=== PATIENT | male | born 1970 | race Caucasian/White ===

== ENCOUNTER 2017-04-12 03:34 | Inpatient (IN) | payer MEDICARE, MEDICAID ==
[~2017-04-12] VITALS: Ht 162.6 cm; Wt 127.7 kg
[2017-04-12] MEDS ORDERED: DILTIAZEM HCL 5 MG/ML 5 ML VIAL IVP ONE (03:45)
[2017-04-12 03:57] LABS: GLUCOSE,POINT OF CARE 131 MG/DL (70-110)
[2017-04-12 04:03] LABS: BASOPHILS % (AUTO) 0.3 % (0.0-2.0); EOSINOPHILS % (AUTO) 2.1 % (1.0-6.0); HEMATOCRIT 37.2 % (41-53); HEMOGLOBIN 11.7 g/dL (13.5-17.5); LYMPHOCYTES # (AUTO) 1.4 K/uL (1.0-4.8); LYMPHOCYTES % (AUTO) 18.2 % (22.0-44.0); MEAN CORPUSCULAR HEMOGLOBIN 26.6 pg (26.0-34.0); MEAN CORPUSCULAR HGB CONC 31.4 G/dL (31.0-37.0); MEAN CORPUSCULAR VOLUME 85 fL (80-100); MONOCYTES # (AUTO) 0.5 K/uL (0.1-1.0); NEUTROPHILS # (AUTO) 5.8 K/uL (1.8-7.7); NEUTROPHILS % (AUTO) 73.4 % (40.0-70.0); PLATELET COUNT (AUTO) 153 K/uL (150-450); RED CELL DISTRIBUTION WIDTH 15.3 % (11.5-14.5); WHITE BLOOD COUNT (AUTO) 7.9 K/uL (4.5-11.0)
[2017-04-12 04:12] LABS: ANION GAP 8 mmol/L (8-16); CALCIUM, TOTAL 8.6 mg/dL (8.8-10.5); CARBON DIOXIDE 28 mmol/L (22-29); CHLORIDE 104 mmol/L (98-107); CREATININE 1.48 mg/dL (0.60-1.30); GLOMERULAR FILTR. RATE CALC 49 mL/min (>60); POTASSIUM 3.8 mmol/L (3.5-5.1); SODIUM SERUM 140 mmol/L (136-145); UREA NITROGEN, BLOOD 19 mg/dL (7-18)
[2017-04-12 04:27] LABS: B-TYPE NATRIURETIC PEPTIDE 380 pg/mL (0-100)
[2017-04-12 04:37] LABS: ALANINE AMINOTRANSFERASE 27 U/L (12-78); ALBUMIN 3.3 g/dL (3.4-5.0); ASPARTATE AMINOTRANSFERASE 21 U/L (15-37); BILIRUBIN,TOTAL 0.6 mg/dL (0.1-1.0); CREATINE KINASE MB 2.1 ng/mL (0-5); CREATINE KINASE, TOTAL 223 U/L (39-308); TOTAL PROTEIN, SERUM 7.9 g/dL (6.4-8.2)
[2017-04-12] MEDS ORDERED: NITROGLYCERIN 2% (1 GM=INCH) PACKET TP ONE (05:00)
[2017-04-12] MEDS ORDERED: FUROSEMIDE 40 MG/4 ML VIAL IVP ONE (05:00)
[2017-04-12 06:15] LABS: APPEARANCE,URINE CLEAR (CLEAR); GLUCOSE, URINE (UA) NEGATIVE (NEGATIVE); KETONES,URINE NEGATIVE (NEGATIVE); LEUKOCYTE ESTERASE ,URINE NEGATIVE (NEGATIVE); OCCULT BLOOD,URINE NEGATIVE (NEGATIVE); PROTEIN,URINE POS 1+ (NEGATIVE)
[2017-04-12 06:16] LABS: ADD UA MICROSCOPIC NO
[2017-04-12] MEDS ORDERED: HydrALAZINE HCL 20 MG/ML VIAL IVP ONE (08:00)
[2017-04-12] MEDS: ENOXAPARIN SODIUM 60 MG/0.6 ML PF SYRINGE SQ SCH ×2 (10:35→22:00)
[2017-04-12] MEDS: METOPROLOL TARTRATE 50 MG TABLET PO SCH ×2 (10:35→20:10)
[2017-04-12 11:09] VITALS: BP 170/95
[2017-04-12] MEDS ORDERED: DEXTROSE 50%-WATER 25 GM/50 ML SYRINGE IVP PRN (11:15)
[2017-04-12] MEDS ORDERED: ONDANSETRON HCL 4 MG/2 ML VIAL IVP PRN (11:15)
[2017-04-12] MEDS ORDERED: ACETAMINOPHEN 650 MG/20.3 ML SOLUTION UDCUP PO PRN (11:15)
[2017-04-12] MEDS ORDERED: ACETAMINOPHEN 325 MG TABLET PO PRN (11:30)
[2017-04-12 11:48] LABS: ALBUMIN 3.3 g/dL (3.4-5.0); BILIRUBIN,TOTAL 0.7 mg/dL (0.1-1.0); CALCIUM, TOTAL 8.3 mg/dL (8.8-10.5); CREATININE 1.31 mg/dL (0.60-1.30); POTASSIUM 3.6 mmol/L (3.5-5.1)
[2017-04-12] MEDS: PANTOPRAZOLE SODIUM 40 MG DR TABLET PO SCH (11:58)
[2017-04-12] MEDS: POTASSIUM CHLORIDE 40 MEQ in SODIUM CHLORIDE 0.9% 1,000 ML IV SCH (11:58)
[2017-04-12 12:02] LABS: GLUCOSE,POINT OF CARE 119 MG/DL (70-110)
[2017-04-12 15:31] VITALS: BP 141/100
[2017-04-12 19:18] VITALS: BP 139/98
[2017-04-12 23:19] VITALS: BP 141/96
[2017-04-12] MEDS: HYDROCODONE/ACETAMINOPHEN 5-325 MG TABLET PO PRN (23:35)
[2017-04-12 23:37] VITALS: BP 130/94
[2017-04-13] VITALS (10 sets, daily range): BP systolic 131–165; BP diastolic 83–121
[2017-04-13] MEDS: POTASSIUM CHLORIDE 40 MEQ in SODIUM CHLORIDE 0.9% 1,000 ML IV SCH ×2 (01:57→16:44)
[2017-04-13] MEDS: ENOXAPARIN SODIUM 60 MG/0.6 ML PF SYRINGE SQ SCH ×2 (09:04→19:42)
[2017-04-13] MEDS ORDERED: SESTAMIBI TC99M/UD ISOTOPE 1 EA INJ INJ ONE ×2 (10:05→12:05)
[2017-04-13] MEDS ORDERED: REGADENOSON 0.4 MG/5 ML PF SYRINGE IVP ONE ×2 (10:06→17:24)
[2017-04-13] MEDS ORDERED: AMINOPHYLLINE 25 MG/ML 10 ML VIAL IVP ONE ×2 (10:09→10:14)
[2017-04-13] MEDS ORDERED: CLOPIDOGREL BISULFATE 300 MG TABLET PO ONE (10:15)
[2017-04-13] MEDS: ASPIRIN 81 MG CHEWABLE TABLET PO SCH (10:43)
[2017-04-13] MEDS: PANTOPRAZOLE SODIUM 40 MG DR TABLET PO SCH (10:43)
[2017-04-13] MEDS: METOPROLOL TARTRATE 50 MG TABLET PO SCH ×2 (10:43→19:42)
[2017-04-13] MEDS: INSULIN ASPART 100 UNITS/ML SQ PRN ×3 (12:56→19:49)
[2017-04-13 13:27] LABS: GLUCOSE COMMENT 1 Received Meds; GLUCOSE,POINT OF CARE 203 MG/DL (70-110)
[2017-04-13] MEDS ORDERED: AMINOPHYLLINE 25 MG/ML 10 ML VIAL IV ONE (17:24)
[2017-04-13] MEDS ORDERED: HydrALAZINE HCL 10 MG TABLET PO PRN (19:30)
[2017-04-13] MEDS: HYDROCODONE/ACETAMINOPHEN 5-325 MG TABLET PO PRN (21:44)
[2017-04-13] MEDS: CALCIUM CARBONATE 500 MG CHEWABLE TABLET CHEW PRN (23:08)
[2017-04-14 05:17] VITALS: BP 154/66
[2017-04-14 07:21] VITALS: BP 123/90
[2017-04-14 08:27] LABS: GLUCOSE COMMENT 1 Received Meds; GLUCOSE,POINT OF CARE 154 MG/DL (70-110)
[2017-04-14 08:36] LABS: GLUCOSE COMMENT 1 Received Meds; GLUCOSE,POINT OF CARE 195 MG/DL (70-110)
[2017-04-14] MEDS: ASPIRIN 81 MG CHEWABLE TABLET PO SCH (08:37)
[2017-04-14] MEDS: PANTOPRAZOLE SODIUM 40 MG DR TABLET PO SCH (08:37)
[2017-04-14] MEDS: METOPROLOL TARTRATE 50 MG TABLET PO SCH (08:37)
[2017-04-14] MEDS: ENOXAPARIN SODIUM 60 MG/0.6 ML PF SYRINGE SQ SCH (08:38)
[2017-04-14] MEDS: POTASSIUM CHLORIDE 40 MEQ in SODIUM CHLORIDE 0.9% 1,000 ML IV SCH (08:42)
[2017-04-14] MEDS ORDERED: CLOPIDOGREL BISULFATE 75 MG TABLET PO SCH (09:00)
[2017-04-14 11:24] VITALS: BP 131/73
[2017-04-14] MEDS: INSULIN ASPART 100 UNITS/ML SQ PRN (11:50)
[2017-04-14] MEDS: HYDROCODONE/ACETAMINOPHEN 5-325 MG TABLET PO PRN (13:09)
[2017-04-14 15:19] VITALS: BP 152/93
[2017-04-14] MEDS ORDERED: ASPI-1093 PO (16:44)
[2017-04-14] MEDS ORDERED: CLOP75 PO (16:44)
[2017-04-14] MEDS ORDERED: METO50 PO (16:45)
[2017-04-14] MEDS ORDERED: PANT40TA25 PO (16:46)
[2017-04-14] MEDS ORDERED: GLYB2.5 PO (16:47)
[2017-04-14] MEDS ORDERED: HYDR10TA31 PO (16:47)
[2017-04-14] MEDS ORDERED: CACARB500 PO (16:48)
[2017-04-14] MEDS: CALCIUM CARBONATE 500 MG CHEWABLE TABLET CHEW PRN (17:11)
[2017-04-15 00:12] LABS: GLUCOSE,POINT OF CARE 122 MG/DL (70-110)
[2017-04-15 00:16] LABS: GLUCOSE,POINT OF CARE 119 MG/DL (70-110)
[2017-04-16 13:37] LABS: GLUCOSE,POINT OF CARE 110 MG/DL (70-110)
[2017-04-16 13:37] LABS: GLUCOSE,POINT OF CARE 111 MG/DL (70-110)
== END 2017-04-14 17:25 | disposition home or self-care (01) | DRG 682 ==
LOC: EMS 03:36 → EDBD 03:36 → AHU 10:01 → 5N 14:37 → 5S 04-14 10:24
PROVIDERS: ADMIT Internal Medicine; ATTEND Internal Medicine
DX: N17.9 Acute kidney failure, unspecified (principal); I50.23 Acute on chronic systolic (congestive) heart failure; Z68.42 Body mass index [BMI] 45.0-49.9, adult; I24.8 Other forms of acute ischemic heart disease; I48.91 Unspecified atrial fibrillation; I11.0 Hypertensive heart disease with heart failure; E86.0 Dehydration; I25.10 Atherosclerotic heart disease of native coronary artery without angina pectoris; F17.210 Nicotine dependence, cigarettes, uncomplicated; E66.9 Obesity, unspecified; E11.51 Type 2 diabetes mellitus with diabetic peripheral angiopathy without gangrene; Z91.14 Patient's other noncompliance with medication regimen; Z95.5 Presence of coronary angioplasty implant and graft; Z59.0 Homelessness; Z86.73 Personal history of transient ischemic attack (TIA), and cerebral infarction without residual deficits
CPT/HCPCS: 78452; 82962; 93005; 93017; 93306; 96374; 96375; 99285; A9500; G0480; J0280; J0360; J1650; J1940; J2785; J3480; J3490; J7030